=== PATIENT | male | born 1955 | race Caucasian/White ===

== ENCOUNTER → 2020-06-17 | Outpatient (CLI) | payer MEDICARE, OTHER ==
[~2020-06-17] MED LIST: ATORVASTATIN CA20 MG PO; CELEBREX200 MG PO; CYCLOBENZAPRINE5 MG PO; FENOFIBRATE160 MG PO; FISH OIL 1,0001 EAC3 PO; LISINOPRIL10 MG PO; TYLENOL PM EX-1 EACH PO; VALSARTAN80 MG PO; VITAMIN C1000 MG PO; VITAMIN D21250 MCG PO
== END ==
LOC: EMI 13:40 → KOH-I 06-22 13:45
DX: M50.121 Cervical disc disorder at C4-C5 level with radiculopathy (principal); R20.0 Anesthesia of skin; R53.1 Weakness; M47.22 Other spondylosis with radiculopathy, cervical region; M48.02 Spinal stenosis, cervical region; M50.23 Other cervical disc displacement, cervicothoracic region; M48.03 Spinal stenosis, cervicothoracic region; M51.24 Other intervertebral disc displacement, thoracic region; M48.04 Spinal stenosis, thoracic region
CPT/HCPCS: 72141

== ENCOUNTER → 2020-07-01 | Outpatient (CLI) | payer MEDICARE, OTHER | LOC: KOH-I 09:30 | DX: M50.123 Cervical disc disorder at C6-C7 level with radiculopathy (principal); M48.02 Spinal stenosis, cervical region | CPT/HCPCS: 72125 ==

== ENCOUNTER → 2020-07-06 | Outpatient (CLI) | payer MEDICARE, OTHER ==
[2020-07-06 09:17] LABS: HEMOGLOBIN 15.3 gm/dl (14.0-17.5); RED BLOOD COUNT 5.08 M/UL (4.20-5.50); WHITE BLOOD COUNT 5.6 K/UL (4.5-11.0)
[2020-07-06 09:37] LABS: BUN/CREATININE RATIO 24 (0-10)
== END ==
LOC: OPSV2 08:00 → EDSTATUS 08:00 → OPSV2 08:31
PROVIDERS: Orthopaedic Surgery
DX: Z01.818 Encounter for other preprocedural examination (principal); M54.12 Radiculopathy, cervical region; I45.10 Unspecified right bundle-branch block; R94.31 Abnormal electrocardiogram [ECG] [EKG]
CPT/HCPCS: 71046; 80048; 81001; 85027; 85610; 85730; 87081; 93005

== ENCOUNTER 2020-07-19 08:50 | Inpatient (IN) | payer MEDICARE, OTHER ==
[~2020-07-19] VITALS: Ht 167.6 cm; Wt 71.7 kg
[2020-07-19] MEDS ORDERED: VALSARTAN80 MG PO (09:34)
[2020-07-19] MEDS ORDERED: CELEBREX200 MG PO (09:34)
[2020-07-19] MEDS ORDERED: CYCLOBENZAPRINE5 MG PO (09:35)
[2020-07-19] MEDS ORDERED: ATORVASTATIN CA20 MG PO (09:35)
[2020-07-19] MEDS ORDERED: FENOFIBRATE160 MG PO (09:35)
[2020-07-19] MEDS ORDERED: FISH OIL 1,0001 EAC3 PO (09:36)
[2020-07-19] MEDS ORDERED: VITAMIN D21250 MCG PO (09:36)
[2020-07-19] MEDS ORDERED: VITAMIN C1000 MG PO (09:36)
[2020-07-19] MEDS ORDERED: TYLENOL PM EX-1 EACH PO (09:37)
[2020-07-19 09:40] LABS: BUN/CREATININE RATIO 20 (0-10)
[2020-07-19] MEDS ORDERED: LISINOPRIL10 MG PO (19:55)
[2020-07-20 04:57] LABS: HEMOGLOBIN 12.7 gm/dl (14.0-17.5); RED BLOOD COUNT 4.09 M/UL (4.20-5.50); WHITE BLOOD COUNT 7.9 K/UL (4.5-11.0)
[2020-07-20 05:13] LABS: BUN/CREATININE RATIO 20 (0-10)
[2020-07-21 07:56] LABS: HEMOGLOBIN 12.5 gm/dl (14.0-17.5); RED BLOOD COUNT 4.05 M/UL (4.20-5.50); WHITE BLOOD COUNT 10.2 K/UL (4.5-11.0)
[2020-07-21 08:19] LABS: BUN/CREATININE RATIO 20 (0-10)
--- NOTE | 2020-07-22 02:56 | NUR ---
07/21/20 1850 PT ARRIVED TO FLOOR A TRANSFER FROM ICU. ACCOMPAINED BY . SEE ASSESSMENT.
[2020-07-22 03:23] LABS: HEMOGLOBIN 12.6 gm/dl (14.0-17.5); RED BLOOD COUNT 4.07 M/UL (4.20-5.50); WHITE BLOOD COUNT 7.9 K/UL (4.5-11.0)
[2020-07-22 03:41] LABS: BUN/CREATININE RATIO 17 (0-10)
== END 2020-07-22 13:00 | disposition home or self-care (01) | DRG 460 ==
LOC: OR 08:50 → CCU 19:33 → M/S 07-21 18:31
PROVIDERS: ADMIT Orthopaedic Surgery
PROC: 0RG2071 Fusion of 2 or more Cervical Vertebral Joints with Autologous Tissue Substitute, Posterior Approach, Posterior Column, Open Approach (ICD-10-PCS; 2020-07-19)
PROC: 0RG4071 Fusion of Cervicothoracic Vertebral Joint with Autologous Tissue Substitute, Posterior Approach, Posterior Column, Open Approach (ICD-10-PCS; 2020-07-19)
PROC: 01N10ZZ Release Cervical Nerve, Open Approach (ICD-10-PCS; 2020-07-19)
PROC: 01N80ZZ Release Thoracic Nerve, Open Approach (ICD-10-PCS; 2020-07-19)
PROC: 4A11X4G Monitoring of Peripheral Nervous Electrical Activity, Intraoperative, External Approach (ICD-10-PCS; 2020-07-19)
PROC: 0RG6071 Fusion of Thoracic Vertebral Joint with Autologous Tissue Substitute, Posterior Approach, Posterior Column, Open Approach (ICD-10-PCS; principal; 2020-07-19 10:00)
DX: M50.00 Cervical disc disorder with myelopathy, unspecified cervical region (principal); M48.02 Spinal stenosis, cervical region; M50.10 Cervical disc disorder with radiculopathy, unspecified cervical region; I10 Essential (primary) hypertension; E78.5 Hyperlipidemia, unspecified; M81.0 Age-related osteoporosis without current pathological fracture; K21.9 Gastro-esophageal reflux disease without esophagitis; M19.90 Unspecified osteoarthritis, unspecified site; Z20.822 Contact with and (suspected) exposure to COVID-19; Z96.7 Presence of other bone and tendon implants; Z81.1 Family history of alcohol abuse and dependence; Z82.62 Family history of osteoporosis; Z82.49 Family history of ischemic heart disease and other diseases of the circulatory system; Z83.49 Family history of other endocrine, nutritional and metabolic diseases
CPT/HCPCS: 36415; 72040; 72050; 76000; 80048; 85025; 86850; 86900; 86901; 97116-GP-CQ; 97161; 97166; C1713; C1762; C1781; J0690; J1040; J1170; J2001; J2250; J2370; J2405; J2704; J3010; J3370; J7040; J7120

== ENCOUNTER → 2021-04-06 | Outpatient (CLI) | payer MEDICARE, OTHER | LOC: LBRF 16:05 | DX: R31.9 Hematuria, unspecified (principal) | CPT/HCPCS: 87086 ==

== ENCOUNTER → 2021-07-07 | Outpatient (CLI) | payer MEDICARE, OTHER | LOC: RAD 09:59 | DX: M25.551 Pain in right hip (principal); Z96.641 Presence of right artificial hip joint; M16.11 Unilateral primary osteoarthritis, right hip | CPT/HCPCS: 73502; 73552 ==